=== PATIENT | male | born 2000 | race Caucasian/White ===

== ENCOUNTER 2018-10-27 13:02 | Emergency (ER) | payer OTHER ==
[~2018-10-27] VITALS: Ht 172.7 cm; Wt 79.5 kg
[2018-10-27 13:02] VITALS: BP 150/66
[2018-10-27] MEDS ORDERED: TRIA1CR80 TOP (13:41)
== END 2018-10-27 13:45 | disposition home or self-care (01) ==
LOC: M ED 13:02
DX: S80.861A Insect bite (nonvenomous), right lower leg, initial encounter (principal); W57.XXXA Bitten or stung by nonvenomous insect and other nonvenomous arthropods, initial encounter; Y92.89 Other specified places as the place of occurrence of the external cause; Z84.0 Family history of diseases of the skin and subcutaneous tissue